=== PATIENT | male | born 1960 | race Caucasian/White ===

== ENCOUNTER 2023-05-04 09:28 | Emergency (ER) | payer OTHER, SELFPAY ==
[2023-05-04 09:43] VITALS: BP 155/94
[2023-05-04 10:01] VITALS: BP 160/104
[2023-05-04 10:03] VITALS: BMI 22.4
[2023-05-04 10:25] LABS: % Basophils 0.9 % (0-2); % Eosinophils 9.7 % (0-6); % Immature Granulocytes 0.2 % (0-0.5); % Lymphocytes 19.9 % (20.5-51.1); % Monocytes 8.4 % (1.7-9.3); % Neutrophils 60.9 % (42.2-75.2); Absolute Basophils 0.1 10^3/uL (0-0.2); Absolute Eosinophils 0.5 10^3/uL (0-0.7); Absolute Lymphocytes 1.1 10^3/uL (1.2-3.4); Absolute Monocytes 0.5 10^3/uL (0.1-0.6); Absolute Neutrophils 3.4 10^3/uL (1.4-6.5); Hematocrit 43.9 % (39.0-52.0); Hemoglobin 15.1 g/dL (13.0-18.0); Mean Corp Hgb Conc. 34.4 g/dL (33.0-37.0); Mean Corpuscular Hgb 31.5 pg (27.0-31.0); Mean Corpuscular Volume 91.5 fL (80.0-94.0); Mean Platelet Volume 9.8 fL (7.4-10.4); Nucleated Red Blood Cells % 0 % (-); Platelet Count 193 10^3/uL (130-400); Red Cell Dist. Width 11.7 % (11.5-14.5); White Blood Cell Count 5.5 10^3/uL (4.8-10.8)
[2023-05-04 10:37] LABS: COVID-19 Antigen Negative (Negative)
[2023-05-04 10:41] LABS: ALT (SGPT) 31 U/L (0-50); AST (SGOT) 35 U/L (17-59); Albumin 4.4 g/dl (3.5-5.0); Alkaline Phosphatase 72 U/L (38-126); Blood Urea Nitrogen 16 mg/dl (9-20); Calcium 9.5 mg/dl (8.4-10.2); Carbon Dioxide 28 mmol/L (22-30); Chloride 104 mmol/L (98-107); Estimated Creatinine Clearance 89 ml/min; Glucose 93 mg/dl (70-99); Potassium 4.5 mmol/L (3.5-5.1); Sodium 136 mmol/L (135-145); Total Bilirubin 0.9 mg/dl (0.2-1.3); Total Protein 6.8 g/dl (6.3-8.2); eGFR > 60.00
[2023-05-04 11:00] VITALS: BP 146/95
[2023-05-04] MEDS: DUONEB 3 ML INH (12:07)
[2023-05-04] MEDS: SOLU-MEDROL PF 125 MG IV (12:07)
[2023-05-04 12:37] VITALS: BP 167/92
[2023-05-04 12:52] VITALS: BP 167/92
--- NOTE | 2023-05-04 17:27 | ED.GENMED ---
History of Present Illness
General
Chief Complaint: Cough
Source: patient and spouse
Exam Limitations: none
Time Seen by Provider: 05/04/23 10:09
Nursing documentation reviewed up to this point in time: agreed with
Travel History
Have you had any contact with someone who has COVID-19?: No
Do you have any symptoms of coronavirus? Fever > 100 degrees, chills, cough, shortness of breath, sore throat, loss of taste or smell, muscle aches, or headache?: No
History of Present Illness
History of Present Illness:
62-year-old male with past medical history of hyperlipidemia presents to the emergency room for evaluation of cough and shortness of breath. Patient reports that for the past 2 months or so he has had a hacking cough productive of clear sputum. He
says that his coughing seems to be much worse at night. He says that after the first few weeks he saw his primary doctor who prescribed him empiric antibiotics which did not help at all. He finished his course of antibiotics about a month ago. He
says that 2 weeks ago he went to urgent care with persistent symptoms and there he was told that he likely had bronchitis and he was started on steroids and was given an albuterol inhaler. He finished the steroids about a week ago and ran out of
albuterol through the metered-dose inhaler. He says that his symptoms did improve with steroid albuterol but over the past 3 days they have returned once again and so he decided to come to the emergency room to be assessed. Cough is still
productive of clear sputum. He feels some mild shortness of breath. No chest pain. He has not any fevers or chills. No swelling or pain in his legs. He is a longtime smoker he says about half pack per day. Denies any history of asthma or COPD.
Review of Systems
Review of Systems
All Other Systems: ROS reviewed and negative except as documented in HPI and ROS
Constitutional: Denies fever or chills
EENT: Denies sore throat
Respiratory: Reports cough and trouble breathing
Cardiac: Denies chest pain or palpitations
ABD/GI: Denies abdominal pain, nausea or vomiting
: Denies flank pain
Musculoskeletal: Denies neck pain or back pain
Neurological: Denies headache, weakness or numbness
Phy Exam
Physical Exam
Physical Exam:
General: Awake, alert; no acute distress
Head: Normocephalic, atraumatic
Eyes: Conjunctiva normal, sclera anicteric
Throat: Airway intact, handling secretions
Neck: Trachea midline, supple without meningismus
Lungs: Patient with significant expiratory wheezing and coughing throughout exam
Heart: Regular rate and rhythm, no murmurs, gallops, or rubs
Abd: Soft, non distended, nontender
Neuro: Cranial nerves grossly intact, speech fluid
Skin: no rash
Extremities: No edema in extremities, warm and well-perfused
Scores
Heart Failure Risk
Heart Failure Risk Score: Not Applicable
Heart Score for Chest Pain Patients
STEMI patient?: Not applicable
Withdrawal Assessment of Alcohol
Withdrawal Assessment Completed?: Not applicable
Course
Orders/Labs/Results
Orders:
Orders
05/04/23 09:50
CXR2 [CR Chest - 2 Views ] Urgent
Comment:
Reason For Exam: cough/sob for two months
05/04/23 10:18
COVID-19 Antigen Urgent
Source: Nasal Swab
Complete Blood Count/With Diff Urgent
Comprehensive Metabolic Panel Urgent
Influenza A+B Rapid Molecular Urgent
SRIRAM Source: Nasal Swab
Specimen Description:
05/04/23 11:53
Ipratropium/Albuterol Sulfate [Duoneb] 3 ml INH R NOW ONE
MethylPREDNISolone PF [Solu-Medrol Pf] 125 mg IV NOW STA
Abnormal Lab Results
05/04/23
10:18
MCH 31.5 H pg
(27.0-31.0)
Absolute Lymphs (auto) 1.1 L 10^3/uL
(1.2-3.4)
Lymphocytes % 19.9 L %
(20.5-51.1)
Eosinophils % 9.7 H %
(0-6)
05/04/23 10:18
05/04/23 10:18
Vital Signs
Initial and Last Documented VS:
Initial Vital Signs
Temp Pulse Resp BP Pulse Ox
36.9 C 74 18 155/94 95
05/04/23 09:43 05/04/23 09:43 05/04/23 09:43 05/04/23 09:43 05/04/23 09:43
Last Documented Vital Signs
Temp Pulse Resp BP Pulse Ox
36.8 C 72 17 167/92 95
05/04/23 12:52 05/04/23 12:52 05/04/23 12:52 05/04/23 12:52 05/04/23 12:52
MDM/Problems Addressed
Differential Diagnosis Includes:
Bronchitis, COPD, pneumonia
MDM/Problems Addressed:
62-year-old male presents for persistent cough over the past 2 months associate with some mild shortness of breath that did not improve initially with empiric antibiotics and improved slightly after a course of steroids and albuterol before
returning once again. He says he has never had a chest x-ray at any point for this. Mildly hypertensive otherwise normal vitals including normal pulse ox on room air. Physical exam as above. Plan to place an IV send labs including CBC and CMP
will check viral swabs. Will check chest x-ray. Will provide a DuoNeb treatment as he does have significant wheezing. Monitor closely reassess after the above.
Labs reviewed: CBC and CMP essentially unremarkable. Viral swabs negative. Chest x-ray reviewed independently by me shows no pneumonia or other acute pathology. After DuoNeb patient feeling a bit better, wheezing slightly improved. I had a long
discussion with the patient I suspect that given the chronicity of his symptoms now essentially chronic over the past 2 months that there may be some component of undiagnosed COPD/chronic bronchitis. Will plan to treat with prednisone taper and
provide additional albuterol. Will refer to pulmonology for outpatient follow-up. Patient feels comfortable this plan. Spoke about return precautions all questions answered.
Chronic conditions affecting care:
Smoking
Acute Exacerbation and/or Progression of Chronic Illness:
Acutely hypertensive�no signs or symptoms of hypertensive emergency no indication for emergent antihypertensive therapy at present
Acute Exacerbation and/or Progression of Chronic Illness: HTN
*Radiology
Radiology exam reviewed: preliminary read by ED provider and radiology read reviewed
*Pulse Oximetry
Patient hypoxic: no
*Critical Care Note
Total Time (30-74mins, 75-104mins- exclusive of procedures): Not Applicable
Data Reviewed
Source: patient and spouse
ED Attending Note
-
Portions of this chart may have been created with voice recognition software.� Occasional wrong word or��sound alike� substitutions may have occurred due to the inherent limitations of voice recognition software.
Discharge Plan
Departure
Patient Disposition: Home (Routine Discharge)
Date of Disposition: 05/04/23
Time of Disposition: 12:50
Patient with high blood pressure during this ER visit?: Yes
Discharge Problem:
Acute bronchitis
Instructions: Acute Bronchitis, Adult (DC)
Prescriptions:
New
prednisone 10 mg Tablet
See Rx Instructions .ROUTE .COMPLEX Qty: 45 0RF
Rx Instructions:
Take By Mouth:
50 mg daily x3 days, 40 mg daily x3 days,
30 mg daily x3 days, 20 mg daily x3 days,
10 mg daily x3 days
albuterol sulfate [ProAir HFA] 90 mcg/actuation HFA aerosol inhaler
2 puff inhalation Q4HPRN PRN (Reason: shortness of breath) Qty: 8.5 0RF
Referrals:
Armando Rodriguez DO [Family Provider] -
Neo Carlos MD [Active] - Call in 1-3 days for appt
Activity Restrictions/Additional Instructions:
Thank you for visiting the Emergency Department at [facility].
1. Please schedule a follow up appointment as directed. Call first thing tomorrow morning to make an appointment.
2. If indicated, please take your medications as instructed and indicated on discharge paperwork.
3. If any of your symptoms do not improve, or persist, or become more severe within 6-12 hours, please return to the emergency department for further care.
4. Please return to the emergency department if you develop a headache, neck pain/stiffness, fever greater than 100.4F, chest pain, shortness of breath, persistent nausea, vomiting, slurred speech, difficulty walking, numbness/tingling, weakness,
signs of infection or any other symptoms that are worrisome to you.
Please call [phone] if you have any questions.
Interventions
Interventions:
*Risk Screen - Suicide Last Done: 05/04/23 10:04
*General Assessment Last Done: 05/04/23 10:04
*Neglect/Abuse Screening Last Done: 05/04/23 10:04
ED- Fall Risk Assessment Last Done: 05/04/23 10:04
*ED COVID-19 Vaccine History Last Done: 05/04/23 09:47
*Nursing Disposition Last Done: 05/04/23 12:52
ED- Pulmonary Assessment Last Done: 05/04/23 10:04
Discharge Date and Time
Discharge Date/Time: 05/04/23 12:54
== END 2023-05-04 12:54 | disposition home or self-care (01) ==
LOC: EMR 09:28
PROVIDERS: EMERGENCY PHYSICIAN Emergency Medicine; FAMILY PHYSICIAN Family Medicine
DX: J20.9 Acute bronchitis, unspecified (principal); E78.5 Hyperlipidemia, unspecified; I10 Essential (primary) hypertension; F17.210 Nicotine dependence, cigarettes, uncomplicated
CPT/HCPCS: 99283; 94640; 96374; 71046; 80053; 85025; 87502; 87811